=== PATIENT | male | born 2000 | race Hispanic/Latino ===

== ENCOUNTER 2023-11-11 17:11 | Observation (INO) | payer SELFPAY ==
[~2023-11-11] VITALS: Ht 172.7 cm; Wt 105.6 kg
[2023-11-11 17:21] VITALS: BP 145/88
[2023-11-11 17:43] LABS: URINE BLOOD DIPSTICK Small (NEGATIVE); URINE GLUCOSE - DIPSTICK Negative (NEGATIVE); URINE KETONE 80 mg/dL (NEGATIVE); URINE LEUK ESTERASE Negative (NEGATIVE); URINE NITRITE - DIPSTICK Negative (Negative); URINE PROTEIN - DIPSTICK Trace mg/dL (NEG-TRACE); URINE SPECIFIC GRAVITY 1.025
[2023-11-11 17:44] LABS: URINE COLOR Yellow
[2023-11-11 17:55] LABS: URINE WBC 0-2 WBC/hpf (0-5)
[2023-11-11 17:57] VITALS: BP 136/85
[2023-11-11 18:00] VITALS: BP 135/87
[2023-11-11 18:17] LABS: BASO% 0.2 % (0-3); EOS% 0.2 % (0-8); HEMATOCRIT 46.2 % (39.0-50.0); HEMOGLOBIN 15.2 g/dl (14.0-18.0); IMMATURE GRANULOCYTES 0.3 % (0.0-5.0); LYMPH% 9.5 % (15-41); MEAN CORPUSCULAR HGB 28.3 pG CALC (26.0-32.0); MEAN CORPUSCULAR HGB CONC 32.9 g/dL CAL (32.0-36.0); NEUT# 8.82 thou/uL (1.82-7.42); NEUT% 82.8 % (42-76); RED BLOOD COUNT 5.37 mill/uL (4.70-6.10); RED CELL DISTRI WIDTH 13.3 % (11.5-15.5)
[2023-11-11 18:30] VITALS: BP 142/91
[2023-11-11 18:31] LABS: ALBUMIN 4.9 g/dL (3.2-5.0); ALKALINE PHOSPHATASE 104 u/l (38-126); AMYLASE 54 u/l (30-110); ANION GAP 13 (6-22 (CALC)); BILIRUBIN, TOTAL 0.7 mg/dL (0.2-1.3); BUN 13 mg/dL (9-20); BUN/CREATININE RATIO 18 (12-20 (CALC)); CARBON DIOXIDE 25 mmol/l (22-30); CHLORIDE 106 mmol/l (95-108); CREATININE 0.8 mg/dL (0.7-1.3); GFR FOR AFR.AMER. > 60 ML/MIN (>=60 (CALC)); GFR OTHER RACES > 60 ML/MIN (>=60 (CALC)); LIPASE 36 u/l (23-300); POTASSIUM 3.8 mmol/l (3.5-5.1); SGOT/AST 41 u/l (17-59); SODIUM 139 mmol/l (137-146); TOTAL PROTEIN 7.6 g/dL (6.3-8.2)
[2023-11-11 23:32] VITALS: BP 120/61
[2023-11-12] VITALS (10 sets, daily range): BP systolic 106–136; BP diastolic 41–78
[2023-11-13 04:34] VITALS: BP 112/56
[2023-11-13 07:38] VITALS: BP 117/72
[2023-11-13] MEDS ORDERED: PERCOCET 5/325M1 TAB PO (09:52)
== END 2023-11-13 10:40 | disposition home or self-care (01) | DRG 399 ==
LOC: ED 17:11 → ED-I 20:45 → ED 21:17 → MS2 21:18 → ED 21:18 → MS2 11-12 05:48
PROVIDERS: Nurse Practitioner; ADMIT Surgery; ATTEND Student in an Organized Health Care Education/Training Program
PROC: 0DTJ4ZZ Resection of Appendix, Percutaneous Endoscopic Approach (ICD-10-PCS; principal; 2023-11-12)
DX: K35.30 Acute appendicitis with localized peritonitis, without perforation or gangrene (principal); F17.210 Nicotine dependence, cigarettes, uncomplicated
CPT/HCPCS: G0378; J0131; J1100; Q9967; S0164